=== PATIENT | male | born 1990 | race African-American/Black ===

== ENCOUNTER 2018-03-15 09:57 | Emergency (ER) | payer OTHER ==
[~2018-03-15] VITALS: Ht 165.1 cm; Wt 108.9 kg
[~2018-03-15 09:57] MED LIST: PROTONIX40 M4 PO
[2018-03-15] MEDS ORDERED: NAPROSYN500 MG PO (10:57)
[2018-03-15] MEDS ORDERED: HYDROCODONE-AP1 EAC6 PO (10:57)
[2018-03-15] MEDS ORDERED: NORFLEX100 MG PO (10:57)
[2018-03-15 11:36] VITALS: BP 125/79
== END 2018-03-15 11:38 | disposition home or self-care (01) ==
LOC: ER 09:57
DX: S20.212A Contusion of left front wall of thorax, initial encounter (principal); S70.12XA Contusion of left thigh, initial encounter; V89.2XXA Person injured in unspecified motor-vehicle accident, traffic, initial encounter; Y93.89 Activity, other specified; Y92.89 Other specified places as the place of occurrence of the external cause; Y99.8 Other external cause status